=== PATIENT | male | born 1980 | race Caucasian/White ===

== ENCOUNTER 2017-09-26 23:41 | Emergency (ER) | payer BC ==
[~2017-09-26] VITALS: Ht 167.6 cm; Wt 90.9 kg
[~2017-09-26 23:41] MED LIST: AMOXICILLIN 50500 MG PO; CEPHALEXIN500 M1 PO; NO HOME MEDICATIONS; PERCOCET 325 MG1 TA2 PO; ZOFRAN 4MG T4 MG/TAB PO
[2017-09-26 23:54] VITALS: TEMP 97.5
[2017-09-27] MEDS ORDERED: PROBIOTIC ACID1 EAC3 PO (00:04)
[2017-09-27] MEDS ORDERED: ZITHROMAX 250M250 MG PO (00:04)
[2017-09-27] MEDS ORDERED: DOXYCYCLINE HY100 MG PO (00:04)
[2017-09-27] MEDS ORDERED: ALEVE 220MG220 MG PO (00:05)
[2017-09-27 00:23] LABS: BASO % 0.6 % (0.0-2.0); EOS # 0.1 (0.0-0.7); EOS % 1.2 % (0-4.0); GRAN # 2.1 (1.4-6.5); GRAN % 40.2 % (42.2-75.2); HEMATOCRIT 48.9 % (42.0-52.0); HEMOGLOBIN 17.1 g/dl (13.5-18.0); LYMPH # 2.3 (1.2-3.4); LYMPH % 43.2 % (20.0-51.0); MEAN CELL VOLUME 90 fl (80.0-100.0); MEAN CORPUSCULAR HEMOGLOBIN 31 pg (27.0-31.0); MEAN CORPUSCULAR HGB CONC 35 g/dl (33.0-37.0); MEAN PLATELET VOLUME 9.5 fl (7.4-10.4); MONO # 0.7 (0.1-0.6); MONO % 13.8 % (1.7-9.3); PLATELET COUNT 242 K/mm3 (130-400); RED BLOOD COUNT 5.45 M/mm3 (4.20-5.60); REDCELL DISTRIBUTION WIDTH-CV 11.7 % (11.5-14.5)
[2017-09-27 00:33] LABS: ALANINE AMINOTRANSFERASE 173 U/L (21-72); ALBUMIN 4.3 gm/dL (3.5-5.0); ALKALINE PHOSPHATASE 93 U/L (50-136); ANION GAP 15 mmol/L (7-16); AST,SGOT 96 U/L (15-37); BILIRUBIN,TOTAL 0.7 mg/dL (0.0-1.0); BLOOD UREA NITROGEN 14 mg/dL (9-20); CALCIUM 9.5 mg/dL (8.4-10.2); CARBON DIOXIDE 26 mmol/L (22-30); CHLORIDE 101 mmol/L (98-107); CREATININE, serum 1.04 mg/dL (0.66-1.25); GLUCOSE 126 mg/dL (74-106); POTASSIUM 3.8 mmol/L (3.4-5.0); SODIUM 142 mmol/L (137-145); TOTAL PROTEIN 8.3 gm/dL (6.4-8.2)
[2017-09-27 00:45] LABS: TROPONIN-I < 0.012 ng/mL (0.000-0.034)
[2017-09-27 03:03] VITALS: BP 130/82; PULSE 76
== END 2017-09-27 03:03 | disposition home or self-care (01) ==
LOC: COL.ER 23:41
PROVIDERS: Emergency Medicine
DX: R07.89 Other chest pain (principal); R06.00 Dyspnea, unspecified; R20.2 Paresthesia of skin; F17.210 Nicotine dependence, cigarettes, uncomplicated
CPT/HCPCS: J7030

== ENCOUNTER → 2018-02-02 | Outpatient (CLI) | payer BC ==
[~2018-02-02] MED LIST changes: +ALEVE 220MG220 MG PO; +DOXYCYCLINE HY100 MG PO; +PROBIOTIC ACID1 EAC3 PO; +ZITHROMAX 250M250 MG PO
== END ==
LOC: COL.RAD 01-31 13:15
DX: M51.26 Other intervertebral disc displacement, lumbar region (principal); M48.061 Spinal stenosis, lumbar region without neurogenic claudication; M47.817 Spondylosis without myelopathy or radiculopathy, lumbosacral region

== ENCOUNTER → 2018-05-10 | Outpatient (CLI) | payer OTHER | LOC: COL.VAS 08:48 | DX: R06.09 Other forms of dyspnea (principal) ==

== ENCOUNTER → 2018-09-27 | Outpatient (CLI) | payer OTHER | LOC: COL.RAD 09:22 | DX: K40.90 Unilateral inguinal hernia, without obstruction or gangrene, not specified as recurrent (principal) ==

== ENCOUNTER → 2018-10-22 | Outpatient (CLI) | payer OTHER ==
[2018-10-22 11:42] LABS: BASO % 0.5 % (0.0-2.0); EOS # 0.2 (0.0-0.7); HEMATOCRIT 49.1 % (42.0-52.0); LYMPH # 1.7 (1.2-3.4); LYMPH % 22.1 % (20.0-51.0); MEAN CELL VOLUME 91 fl (80.0-100.0); MEAN CORPUSCULAR HEMOGLOBIN 31 pg (27.0-31.0); MEAN CORPUSCULAR HGB CONC 35 g/dl (33.0-37.0); MEAN PLATELET VOLUME 9.4 fl (7.4-10.4); MONO # 0.6 (0.1-0.6); PLATELET COUNT 244 K/mm3 (130-400); RED BLOOD COUNT 5.42 M/mm3 (4.20-5.60); REDCELL DISTRIBUTION WIDTH-CV 11.9 % (11.5-14.5)
[2018-10-22 11:54] LABS: ALANINE AMINOTRANSFERASE 51 U/L (21-72); ALBUMIN 4.8 gm/dL (3.5-5.0); ALKALINE PHOSPHATASE 80 U/L (50-136); ANION GAP 10 mmol/L (7-16); AST,SGOT 44 U/L (15-37); BILIRUBIN,TOTAL 0.4 mg/dL (0.0-1.0); BLOOD UREA NITROGEN 23 mg/dL (9-20); CALCIUM 9.8 mg/dL (8.4-10.2); CARBON DIOXIDE 32 mmol/L (22-30); CHLORIDE 99 mmol/L (98-107); GLUCOSE 94 mg/dL (74-106); LIPASE 101 U/L (23-300); SODIUM 140 mmol/L (137-145); TOTAL PROTEIN 8.6 gm/dL (6.4-8.2)
[2018-10-22 12:06] LABS: C-REACTIVE PROTEIN < 0.5 mg/dL (0.0-0.9)
== END ==
LOC: COL.LAB 11:25
PROVIDERS: Physician Assistant Medical
DX: R07.9 Chest pain, unspecified (principal); R10.84 Generalized abdominal pain

== ENCOUNTER → 2018-11-15 | Outpatient (CLI) | payer OTHER | LOC: COL.RAD 07:24 | DX: R10.11 Right upper quadrant pain (principal); R10.13 Epigastric pain; R11.0 Nausea ==

== ENCOUNTER → 2019-02-04 | Outpatient (CLI) | payer OTHER | LOC: COL.RAD 06:50 | DX: K59.00 Constipation, unspecified (principal); R11.0 Nausea | CPT/HCPCS: A9537 ==

== ENCOUNTER → 2019-02-12 | Outpatient (CLI) | payer OTHER | LOC: COL.RAD 07:16 | DX: R10.13 Epigastric pain (principal); R11.0 Nausea | CPT/HCPCS: Q9967 ==

== ENCOUNTER → 2019-12-23 | Outpatient (CLI) | payer BC | LOC: MHCPAIN 12:20 | DX: M47.817 Spondylosis without myelopathy or radiculopathy, lumbosacral region (principal); M54.5 Low back pain; M53.3 Sacrococcygeal disorders, not elsewhere classified; G89.29 Other chronic pain; M54.16 Radiculopathy, lumbar region | CPT/HCPCS: G0463 ==

== ENCOUNTER 2020-03-06 08:30 | Outpatient (RCR) | payer BC | END 2020-03-09 11:25 | disposition home or self-care (01) | LOC: WSC 08:30 | DX: M53.3 Sacrococcygeal disorders, not elsewhere classified (principal); M47.27 Other spondylosis with radiculopathy, lumbosacral region ==

== ENCOUNTER → 2020-06-23 | Outpatient (CLI) | payer BC | LOC: MHCPAIN 09:21 | DX: M47.812 Spondylosis without myelopathy or radiculopathy, cervical region (principal); M54.2 Cervicalgia; M54.12 Radiculopathy, cervical region; M54.5 Low back pain | CPT/HCPCS: G0463 ==

== ENCOUNTER → 2020-07-23 | Outpatient (CLI) | payer BC | LOC: MHCPAIN 08:17 | DX: M47.812 Spondylosis without myelopathy or radiculopathy, cervical region (principal); M54.12 Radiculopathy, cervical region | CPT/HCPCS: G0463; J1100; Q9967 ==

== ENCOUNTER → 2020-08-05 | Outpatient (CLI) | payer BC | LOC: MHCPAIN 08:51 | DX: M54.12 Radiculopathy, cervical region (principal); M79.18 Myalgia, other site; M47.812 Spondylosis without myelopathy or radiculopathy, cervical region; G89.29 Other chronic pain | CPT/HCPCS: G0463 ==

== ENCOUNTER → 2021-01-25 | Outpatient (CLI) | payer BC | LOC: MHCPAIN 09:23 | DX: M47.812 Spondylosis without myelopathy or radiculopathy, cervical region (principal); M54.2 Cervicalgia; G89.29 Other chronic pain | CPT/HCPCS: G0463 ==